=== PATIENT | male | born 1975 | race African-American/Black ===

== ENCOUNTER 2024-07-12 14:19 | Emergency (ER) | payer SELFPAY ==
[~2024-07-12] VITALS: Ht 177.8 cm; Wt 136.1 kg
[2024-07-12 14:33] VITALS: PULSE 94; RESP 20; TEMP 98.4; O2SAT 98
[2024-07-12] MEDS: KETOROLAC TROMETHAMINE 60 MG/2 ML VIAL IM ONE (15:11)
[2024-07-12] MEDS ORDERED: ZESTORETIC 10-1 EAC1 PO (15:19)
[2024-07-12] MEDS ORDERED: METHOCARBAMOL750 MG PO (15:20)
[2024-07-12] MEDS ORDERED: MELOXICAM15 MG PO (15:20)
== END 2024-07-12 15:30 | disposition home or self-care (01) ==
LOC: FSED 14:23
DX: M54.2 Cervicalgia (principal); M54.50 Low back pain, unspecified; V43.62XA Car passenger injured in collision with other type car in traffic accident, initial encounter; Y92.488 Other paved roadways as the place of occurrence of the external cause; I10 Essential (primary) hypertension
CPT/HCPCS: 99283; J1885